=== PATIENT | female | born 2000 | race Two or more races ===

== ENCOUNTER 2025-07-09 04:57 | Emergency (ER) | payer SELFPAY ==
[~2025-07-09] VITALS: Ht 167.6 cm; Wt 82.7 kg
[2025-07-09 05:02] VITALS: TEMP 98.2
[2025-07-09 07:45] VITALS: BP 120/84; PULSE 75; RESP 16; O2SAT 98
[2025-07-09] MEDS ORDERED: AMOX500C2 PO (07:55)
[2025-07-09] MEDS: OXYMETAZOLINE HCL 0.05% 15 ML NASAL SPRAY NASAL ONE (07:58)
== END 2025-07-09 08:07 | disposition home or self-care (01) ==
LOC: EMS 04:57
DX: H66.92 Otitis media, unspecified, left ear (principal); J06.9 Acute upper respiratory infection, unspecified
CPT/HCPCS: 71045; 99283